=== PATIENT | male | born 1995 | race African-American/Black ===

== ENCOUNTER 2024-12-25 15:13 | Emergency (ER) | payer OTHER, SELFPAY ==
[2024-12-25 16:13] VITALS: BP 125/63; PULSE 88; RESP 14; TEMP 36.7; O2SAT 99; BMI 31.9
[2024-12-25 17:02] LABS: Influenza A - CEPHEID Flu A NEGATIVE (NEGATIVE); Influenza B - CEPHEID Flu B NEGATIVE (NEGATIVE)
[2024-12-25 17:06] LABS: COVID-19 CEPHEID 4-PLEX PCR Negative (Negative)
--- NOTE | 2024-12-25 18:32 | ED_ITS ---
<Statement entered by Israel Reyna, DO - 12/25/24 22:48> Co-Sign Statement: I was available for consultation during this patient's emergency department visit. This chart is signed by myself for administrative purposes only. I did not have direct contact with this patient during this visit. They were seen independently by the APC. HPI - URI/Sore Throat General Chief Complaint: Upper Respiratory Symptoms Stated Complaint: girlfriend + COVID, thinks he has it Time Seen by Provider: 12/25/24 17:50 Source: patient Mode of arrival: Family Vehicle History of Present Illness HPI Narrative: Mr. Ibarra is a very pleasant 29-year-old male, active [employer], with a past medical history of asthma presents to the emergency department for bilateral ear pressure since 11:00 a.m. this morning, concerned for COVID because his girlfriend tested positive. His symptoms started this afternoon. His girlfriend has been sick for 2 days. They live together. He denies chest pain, shortness of breath, cough, wheezing, fevers, chills, nausea, vomiting, diarrhea, abdominal pain, sore throat, sinus congestion. Related Data Home Medications ?Medication ?Instructions ?Recorded ?Confirmed albuterol sulfate 90 mcg/actuation 2 puff inhalation Q 4-6H PRN 08/05/24 08/05/24 aerosol inhaler Previous Rx's ?Medication ?Instructions ?Recorded budesonide-formoterol HFA 80 2 puff inhalation BID PRN 08/05/24 mcg-4.5 mcg/actuation aerosol shortness of breath or w heezing inhaler #30.6 grams montelukast 10 mg tablet 10 mg PO QPM #90 tabs (Singulair) Allergies Allergy/AdvReac Type Severity Reaction Status Date / Time No Known Drug Allergies Allergy Verified 12/25/24 16:14 Review of Systems Review of Systems ROS Unobtainable: All systems reviewed & are unremarkable except as noted in HPI and below Patient History Social History Smoking Status: Never smoker Smoking Status: Never smoker Exam Narrative Exam Narrative: GENERAL: 29 year old patient appears stated age. Well-developed patient, in no acute distress. HEAD: Atraumatic. Normocephalic. EYES: PERRL. Extraocular motions intact. No scleral icterus. No injection or drainage. ENT: Ear canals are clear and TMs are pearly plaza with clear/white fluid behind both TMs consistent with otitis media with effusion BL. No mastoid tenderness bilaterally. Nose without bleeding, purulent drainage. Throat without erythema, tonsillar hypertrophy or exudate. Airway patent. NECK: Trachea midline. Cervical ROM intact. CARDIOVASCULAR: Regular rate and rhythm. RESPIRATORY: ?Nonlabored respirations. ?Speaking in clear, full sentences. ?Clear to auscultation. Breath sounds equal bilaterally. No wheezes, rales, or rhonchi. ? NEURO: AOx3. ?Clear speech. ?Moves all 4 extremities appropriately. Steady gait. No facial asymmetry. SKIN: No rash or erythema of visible areas Initial Vital Signs Initial Vital Signs: Vital Signs Temperature 98.0 F 12/25/24 16:13 Pulse Rate 88 12/25/24 16:13 Respiratory Rate 14 12/25/24 16:13 Blood Pressure 125/63 12/25/24 16:13 Pulse Oximetry 99 12/25/24 16:13 Oxygen Delivery Method Room Air 12/25/24 16:13 Course Orders Ordered: ED Orders 12/25/24 16:20 Covid-19 + FLU A/B + RSV - PCR Stat Vital Signs Vital signs: Vital Signs - 8 hr 12/25/24 16:13 Temperature 98.0 F Pulse Rate 88 Respiratory Rate 14 Blood Pressure 125/63 Pulse Oximetry 99 Oxygen Delivery Method Room Air MDM - URI/Sore Throat Medical Records Attestation: I reviewed the patient's medical records. Lab Data Labs: Lab Results 12/25/24 Range/Units 16:20 SARS-CoV-2 (PCR) Negative (Negative) Influenza A (RT-PCR) Flu a negative (NEGATIVE) Influenza B (RT-PCR) Flu b negative (NEGATIVE) RSV (PCR) Negative (Negative) MDM Narrative Medical decision making narrative: 29-year-old male, active [employer], with a past medical history of asthma presents to the emergency department for bilateral ear pressure since 11:00 a.m. this morning, concerned for COVID because his girlfriend tested positive. Differential diagnosis includes but is not limited to acute otitis media, acute otitis media with effusion, viral syndrome, COVID, etc. On exam patient is in no acute distress, nontoxic-appearing, all vital signs within normal limits. Lungs are clear to auscultation bilaterally with no wheezing. HEENT exam reveals bilateral otitis media with effusion, no erythema or bulging of TMs concerning for infectious otitis media. Viral swab obtained in triage is negative for COVID/flu/RSV. Discussed results with the patient, recommended supportive care, he declines need for any medications in the ED at this time. Recommended hydration, Flonase, ibuprofen, Tylenol, follow up with PCP. Discussed ED return precautions. Discussed possibility that he could still develop COVID and supportive care in that case. Patient verbalized understanding of all information including ED return precautions. He is stable for discharge home. Discharge Plan Departure Patient Disposition: Home Clinical Impression: Acute otitis media with effusion, Close exposure to COVID-19 virus Instructions: DI for COVID-19 (Suspected or Confirmed ) Activity Restrictions/Additional Instructions: Dear Fred, Thank you for coming to the emergency department. Today you were evaluated for ear pressure and headache. Your physical exam revealed fluid behind her eardrums which is also known as otitis media with effusion. This is not an infection. Please increase hydration, use intranasal Flonase, in addition to ibuprofen and acetaminophen together to help with this. You tested negative for COVID, flu a, flu B, RSV. Because you had close exposure to COVID, it is still possible that you could test positive/developed symptoms at a later date. Please take Ibuprofen (Motrin/Advil) or Acetaminophen (Tylenol) for pain. These are available over the counter. You may take Ibuprofen 600 mg every 8 hours with food for pain. You may also take Acetaminophen 650 mg every 4-6 hours for pain. Do not exceed 3000 mg of Tylenol a day as this can cause liver damage. Do not drink alcohol with either of these medications. Please follow up with your primary care doctor within the next 2-3 days for ER follow-up. (If you do not have a PCP you can call [phone]. ?to schedule an appointment with an [facility] Primary Care Provider) IF YOU DEVELOP ANY NEW OR WORSENING SYMPTOMS, RETURN TO THE ER! Please read the attached instructions, they highlight more specific treatments and interventions for you at home. Thank you for letting me participate in your care, Giana Johnson PA-C Prescriptions: No Action albuterol sulfate 90 mcg/actuation HFA aerosol inhaler 2 puff inhalation Q4-6H PRN budesonide-formoterol 80-4.5 mcg/actuation HFA aerosol inhaler 2 puff inhalation BID PRN (Reason: shortness of breath or wheezing) Qty: 30.6 4RF Rx Instructions: Rinse mouth with water, gargle and spit after each use montelukast [Singulair] 10 mg tablet 10 mg PO QPM Qty: 90 4RF Referrals: Miscellaneous,Doctor, MD [Primary Care Provider, Medical] Stand Alone Forms: Patient Portal/API
== END 2024-12-25 19:00 | disposition home or self-care (01) ==
PROVIDERS: Family Medicine; Emergency Provider Physician Assistant
DX: H65.193 Other acute nonsuppurative otitis media, bilateral (principal); Z20.822 Contact with and (suspected) exposure to COVID-19
CPT/HCPCS: 87637; 99281; 99282